=== PATIENT | male | born 2000 | race Caucasian/White ===

== ENCOUNTER 2023-01-03 00:47 | Inpatient (IN) | payer MEDICAID, OTHER ==
[~2023-01-03] VITALS: Ht 175.3 cm; Wt 136.4 kg
[2023-01-03 01:36] LABS: HEMATOCRIT 49.3 % (42.0-52.0); HEMOGLOBIN 16.8 g/dl (13.5-17.5); MEAN CORPUSCULAR HEMOGLOBIN 28.7 pg (27.0-33.0); MEAN CORPUSCULAR HGB CONC 34.1 g/dl (32.0-36.5); MEAN CORPUSCULAR VOLUME 84.3 fl (80.0-96.0); PLATELET COUNT, AUTOMATED 290 10^3/uL (150-450); RED BLOOD COUNT 5.85 10^6/uL (4.30-6.10); WHITE BLOOD COUNT 10.1 10^3/uL (4.0-10.0)
[2023-01-03 01:50] LABS: AMPHETAMINES LEVEL URINE NEGATIVE (NEGATIVE); BARBITURATES URINE NEGATIVE (NEGATIVE); BENZODIAZEPINES URINE NEGATIVE (NEGATIVE); CANNABINOIDS URINE NEGATIVE (NEGATIVE); COCAINE METABOLITE URINE NEGATIVE (NEGATIVE); METHADONE URINE NEGATIVE (NEGATIVE); OPIATES URINE NEGATIVE (NEGATIVE); PHENCYCLIDINE URINE NEGATIVE (NEGATIVE)
[2023-01-03 01:52] LABS: ETHYL ALCOHOL (ETHANOL) < 0.003 % (0.000-0.010)
[2023-01-03 01:53] LABS: ACETAMINOPHEN LEVEL < 2.0 UG/ML (10.0-20.0); ALBUMIN 4.7 G/DL (3.2-5.2); ALKALINE PHOSPHATASE 59 U/L (46-116); ALT/SGPT 114 U/L (7.0-40); AST/SGOT 36 U/L (<34); BILIRUBIN,DIRECT 0.1 MG/DL (<0.4); BILIRUBIN,TOTAL 0.4 MG/DL (0.3-1.2); BLOOD UREA NITROGEN 12 MG/DL (9-23); CALCIUM LEVEL 10.2 MG/DL (8.5-10.1); CARBON DIOXIDE LEVEL 24 MMOL/L (20-31); CHLORIDE LEVEL 104 MMOL/L (98-107); CREATININE FOR GFR 0.74 MG/DL (0.70-1.30); GLOMERULAR FILTRATION RATE > 60.0 (>60); GLUCOSE, FASTING 95 MG/DL (60-100); POTASSIUM SERUM 4.2 MMOL/L (3.5-5.1); SODIUM LEVEL 139 MMOL/L (136-145); TOTAL PROTEIN 8.1 G/DL (5.7-8.2)
[2023-01-03 01:54] LABS: SALICYLATE LEVEL < 3.0 MG/DL (<30)
[2023-01-03 01:55] LABS: THYROID STIMULATING HORMONE 1.552 uIU/ML (0.55-4.78)
[2023-01-03] MEDS ORDERED: HOME MED LIST COMPLETE! XX SCH (02:30)
[2023-01-03 08:44] LABS: HEPATITIS B CORE ANTIBODY IGM NEGATIVE (NEGATIVE); HEPATITIS C VIRUS ABY INDEX 0.14 INDEX (<0.8)
[2023-01-03] MEDS ORDERED: MOM 30ML SUSPENSION UDC PO PRN (13:50)
[2023-01-03] MEDS ORDERED: IBUPROFEN 400MG TAB PO PRN (13:50)
[2023-01-03] MEDS ORDERED: diphenhydrAMINE 25MG CAP PO PRN (13:50)
[2023-01-03] MEDS ORDERED: MAALOX 30 ML SUSP *UDC PO PRN (13:50)
[2023-01-03 17:05] VITALS: BP 120/67; TEMP 97.5; O2SAT 99
[2023-01-03] MEDS: NICOTINE 21MG/24HR 1 EA TRANSDERMAL TD SCH (17:39)
[2023-01-03] MEDS: ACETAMINOPHEN TAB 650MG DOSE (2X325MG) PO PRN (19:59)
[2023-01-04] MEDS: traZODone 50 MG TAB PO PRN ×2 (01:22→22:25)
[2023-01-04 06:55] VITALS: BP 109/78; TEMP 96.4; O2SAT 97
[2023-01-04] MEDS: NICOTINE 21MG/24HR 1 EA TRANSDERMAL TD SCH ×2 (09:54→19:12)
[2023-01-04 10:35] LABS: ALBUMIN 4.2 G/DL (3.2-5.2); BILIRUBIN,DIRECT 0.2 MG/DL (<0.4); BILIRUBIN,TOTAL 0.7 MG/DL (0.3-1.2); TOTAL PROTEIN 7.6 G/DL (5.7-8.2)
[2023-01-04 18:24] VITALS: BP 127/71; TEMP 96.8; O2SAT 97
[2023-01-04] MEDS: NICOTINE POLACRILEX 2 MG GUM PO PRN (20:38)
[2023-01-05 06:37] VITALS: BP 131/80; TEMP 97.9; O2SAT 97
[2023-01-05] MEDS: FLUoxetine 10 MG CAP PO SCH (09:49)
[2023-01-05] MEDS: ACETAMINOPHEN TAB 650MG DOSE (2X325MG) PO PRN (15:49)
[2023-01-05] MEDS: NICOTINE POLACRILEX 2 MG GUM PO PRN ×2 (15:51→20:39)
[2023-01-05 16:37] VITALS: BP 107/63; TEMP 98.6
[2023-01-05 16:58] VITALS: BP 131/77; TEMP 97.1
[2023-01-06 06:16] VITALS: BP 124/64; TEMP 98.1; O2SAT 98
[2023-01-06] MEDS: FLUoxetine 10 MG CAP PO SCH (09:28)
[2023-01-06] MEDS: NICOTINE POLACRILEX 2 MG GUM PO PRN ×3 (13:07→22:11)
[2023-01-06 18:00] VITALS: BP 134/68; TEMP 98.9
[2023-01-07 06:17] VITALS: BP 109/59; TEMP 96.8; O2SAT 98
[2023-01-07] MEDS: NICOTINE POLACRILEX 2 MG GUM PO PRN (09:00)
[2023-01-07] MEDS ORDERED: FLUoxetine 20MG CAP PO SCH (09:00)
[2023-01-07] MEDS ORDERED: NICO2GUM PO (09:53)
[2023-01-07] MEDS ORDERED: FLUO20CA22 PO (09:53)
== END 2023-01-07 14:07 | disposition home or self-care (01) | DRG 751 ==
LOC: M ED 00:47 → M ED INP 13:49 → M PSY 17:05
PROVIDERS: ADMIT Student in an Organized Health Care Education/Training Program; ATTEND Student in an Organized Health Care Education/Training Program
DX: F32.2 Major depressive disorder, single episode, severe without psychotic features (principal); F10.10 Alcohol abuse, uncomplicated; R45.851 Suicidal ideations; R74.01 Elevation of levels of liver transaminase levels; F17.210 Nicotine dependence, cigarettes, uncomplicated; F17.220 Nicotine dependence, chewing tobacco, uncomplicated; F17.290 Nicotine dependence, other tobacco product, uncomplicated; Z20.822 Contact with and (suspected) exposure to COVID-19; Z63.0 Problems in relationship with spouse or partner; Z56.0 Unemployment, unspecified